=== PATIENT | male | born 1940 | race Caucasian/White ===

== ENCOUNTER 2017-10-22 14:52 | Observation (INO) | payer OTHER, BC ==
[~2017-10-22] VITALS: Ht 182.9 cm; Wt 96.2 kg
[~2017-10-22 14:52] MED LIST: AFRIN,GENASAL D15 ML BOTH NARES; ALDACTAZIDE1 TABLET PO; ANALGESIC325 MG PO; ASPIRIN325 MG PO; AUGMENTIN875 MG PO; BENAZEPRIL HCL20 MG PO; CELEBREX200 MG PO; CELEXA40 MG PO; CENTRUM SILVER1 EAC1 PO; CRESTOR10 MG PO; CRESTOR5 MG PO; Celexa PO; FISH OIL 1,2001 EAC4 PO; HYDROCODON-ACE1 EAC7 PO; LOTENSIN40 MG PO; MELOXICAM15 MG PO; NAPROSYN500 MG PO; NORVASC10 MG PO; OMEGA-31000 M1 PO; PRILOSEC20 MG PO; SENNA-TIME S T1 EACH PO; SENOKOT S,PE1 TABLET PO; SPIRONOLACT/HC1 EACH PO; TYLENOL EXTRA500 MG PO; Vicodin,Lortab 5/500 PO; WARFARIN SODIUM5 MG PO; ZANTAC150 MG PO; ZOVIRAX400 MG PO
[2017-10-22 15:53] LABS: HEMOGLOBIN 12.3 G/DL (12.5-16.6); MCH 30.8 PG (29.0-34.0); MCHC 35.1 G/DL (30.0-36.0); MCV 87.5 FL (86-99); PLATELET COUNT 205 K/uL (156-360); RBC DIS.WIDTH-CV 16.1 % (11.8-14.6); RBC DIS.WIDTH-SD 47.7 % (39-53); WHITE BLOOD COUNT 7.9 K/uL (4.1-10.2)
[2017-10-22 16:07] LABS: CHLORIDE 109 mEq/L (99-109); POTASSIUM 3.6 mEq/L (3.7-5.4); SODIUM 142 mEq/L (136-147)
[2017-10-22 16:09] LABS: GLUCOSE 143 mg/dL (70-99)
[2017-10-22 16:13] LABS: CREATININE 0.9 mg/dL (0.6-1.3); GFR ESTIMATE (CALCULATED) > 59 mL/min/ (58.99-99999)
[2017-10-22 16:14] LABS: UREA NITROGEN (BUN) 26 mg/dL (9-23)
[2017-10-22 16:16] LABS: TROP-I INTERPRETATION NEGATIVE; TROPONIN-I < 0.01 ng/mL (0.0-0.30)
[2017-10-22] MEDS ORDERED: OMEGA-3 FLAXS1000 MG PO (17:06)
[2017-10-22] MEDS ORDERED: ANORO ELLIPTA1 EACH IH (17:07)
[2017-10-22] MEDS ORDERED: DONEPEZIL HCL10 MG PO (17:07)
[2017-10-22] MEDS ORDERED: RANITIDINE HCL150 MG PO (17:07)
[2017-10-22] MEDS ORDERED: ATORVASTATIN CA20 MG PO (17:08)
[2017-10-22] MEDS ORDERED: FLUTICASONE PRO16 GM BOTH NARES (17:08)
[2017-10-22] MEDS ORDERED: CITALOPRAM HBR40 MG PO (17:08)
[2017-10-22] MEDS ORDERED: AZELASTINE137 MCG/0. BOTH NARES (17:09)
[2017-10-22] MEDS ORDERED: MONTELUKAST SOD10 MG PO (17:10)
[2017-10-22] MEDS ORDERED: FEXOFENADINE H180 MG PO (17:10)
[2017-10-22] MEDS ORDERED: PROAIR HFA8.5 GM IH (17:11)
[2017-10-22] MEDS ORDERED: NAPROXEN500 MG PO (17:13)
[2017-10-22 19:38] LABS: ALBUMIN 4.1 g/dL (3.2-4.8)
[2017-10-22 19:42] LABS: TOTAL BILIRUBIN 0.6 mg/dL (0.0-1.0)
[2017-10-22 19:43] LABS: ALKALINE PHOSPHATASE 45 IU/L (3-129)
[2017-10-22 19:46] LABS: AST (GOT) 27 IU/L (2-34); DIRECT BILIRUBIN 0.2 mg/dL (0.0-0.3)
[2017-10-22 19:47] LABS: ALT (GPT) 45 IU/L (3-49); LIPASE 47 U/L (1.0-51.0)
[2017-10-22 20:36] VITALS: BP 137/64
[2017-10-22 22:12] LABS: TROP-I INTERPRETATION NEGATIVE; TROPONIN-I < 0.01 ng/mL (0.0-0.30)
[2017-10-22 23:55] VITALS: BP 141/79
[2017-10-23 05:07] VITALS: BP 133/73
[2017-10-23 05:14] LABS: HEMATOCRIT 32.4 % (38.0-50.0); MCH 29.9 PG (29.0-34.0); PLATELET COUNT 193 K/uL (156-360); RBC DIS.WIDTH-CV 16.2 % (11.8-14.6); RBC DIS.WIDTH-SD 48.6 % (39-53); RED BLOOD COUNT 3.68 M/uL (4.00-5.50); WHITE BLOOD COUNT 6.8 K/uL (4.1-10.2)
[2017-10-23 05:26] LABS: TROP-I INTERPRETATION NEGATIVE; TROPONIN-I 0.01 ng/mL (0.0-0.30)
[2017-10-23 05:31] LABS: CHLORIDE 109 MEQ/L (99-109); CREATININE 0.8 MG/DL (0.6-1.3); GFR ESTIMATE (CALCULATED) > 59 mL/min/ (58.99-99999); POTASSIUM 3.8 MEQ/L (3.7-5.4); SODIUM 142 MEQ/L (136-147); UREA NITROGEN (BUN) 20 mg/dL (9-23)
[2017-10-23 05:54] LABS: GLUCOSE 103 mg/dL (70-99)
[2017-10-23 08:00] VITALS: BP 123/72
[2017-10-23 11:29] VITALS: BP 150/72
== END 2017-10-23 14:48 | disposition home or self-care (01) ==
LOC: EME 14:52 → 4SOUTH 18:37 → EDOF 18:37 → 4SOUTH 20:23
PROVIDERS: Hospitalist
DX: R07.9 Chest pain, unspecified (principal); I25.10 Atherosclerotic heart disease of native coronary artery without angina pectoris; I25.84 Coronary atherosclerosis due to calcified coronary lesion; I10 Essential (primary) hypertension; E78.5 Hyperlipidemia, unspecified; D64.9 Anemia, unspecified; K21.9 Gastro-esophageal reflux disease without esophagitis; F32.9 Major depressive disorder, single episode, unspecified; Z86.711 Personal history of pulmonary embolism; K44.9 Diaphragmatic hernia without obstruction or gangrene; J44.9 Chronic obstructive pulmonary disease, unspecified; G47.33 Obstructive sleep apnea (adult) (pediatric); Z90.49 Acquired absence of other specified parts of digestive tract; Z87.891 Personal history of nicotine dependence; Z82.49 Family history of ischemic heart disease and other diseases of the circulatory system; Z80.41 Family history of malignant neoplasm of ovary; Z96.611 Presence of right artificial shoulder joint; Z96.612 Presence of left artificial shoulder joint
CPT/HCPCS: 71046; 71275; 80048; 80076; 83690; 84484; 85027; 93005; 94799; 99281; 99284; G0378; J1650; J7030

== ENCOUNTER 2017-11-05 08:37 | Day surgery (SDC) | payer OTHER, BC ==
[~2017-11-05] VITALS: Ht 182.9 cm; Wt 91.0 kg
[~2017-11-05 08:37] MED LIST changes: +ANORO ELLIPTA1 EACH IH; +ATORVASTATIN CA20 MG PO; +AZELASTINE137 MCG/0. BOTH NARES; +CENTRUM SILVER1 EAC5 PO; +CITALOPRAM HBR40 MG PO; +DONEPEZIL HCL10 MG PO; +FEXOFENADINE H180 MG PO; +FLUTICASONE PRO16 GM BOTH NARES; +MONTELUKAST SOD10 MG PO; +NAPROXEN500 MG PO; +OMEGA-3 FLAXS1000 MG PO; +PROAIR HFA8.5 GM IH; +RANITIDINE HCL150 MG PO
== END 2017-11-05 15:40 | disposition home or self-care (01) ==
LOC: CATH 08:37
PROC: B2151ZZ Fluoroscopy of Left Heart using Low Osmolar Contrast (ICD-10-PCS; principal; 2017-11-05)
PROC: B2111ZZ Fluoroscopy of Multiple Coronary Arteries using Low Osmolar Contrast (ICD-10-PCS; principal; 2017-11-05)
PROC: 4A023N7 Measurement of Cardiac Sampling and Pressure, Left Heart, Percutaneous Approach (ICD-10-PCS; principal; 2017-11-05)
DX: I25.10 Atherosclerotic heart disease of native coronary artery without angina pectoris (principal); I70.0 Atherosclerosis of aorta; Z79.82 Long term (current) use of aspirin; G47.30 Sleep apnea, unspecified; I10 Essential (primary) hypertension; Z87.891 Personal history of nicotine dependence
CPT/HCPCS: C1769; C1887; J1644; J2250; J3010; J7040